=== PATIENT | male | born 1980 | race Caucasian/White ===

== ENCOUNTER 2018-05-31 18:43 | Emergency (ER) | payer MEDICARE, MEDICAID, SELFPAY ==
[2018-05-31 18:55] VITALS: BP 138/90; PULSE 108; RESP 16; TEMP 36.8; O2SAT 96; BMI 30.4
--- NOTE | 2018-05-31 19:02 | DI.RAD.S_ITS ---
PROCEDURE: XR HAND LT MIN 3V INDICATIONS: carrying center blocks , ?injury, now with pain and swelling TECHNIQUE: 3 views of the hand(s) acquired. COMPARISON: None. FINDINGS: Bones: No fractures or dislocations. Carpal bones are normally aligned. No suspicious bony lesions. Soft tissues: No suspicious soft tissue calcifications. IMPRESSION: No fracture or dislocation. Dictated by: Jason Schmidt M.D. on 05/31/2018 at 19:15 Approved by: Jason Schmidt M.D. on 05/31/2018 at 19:19
--- NOTE | 2018-05-31 20:21 | ED.EXTPRO ---
HPI - Extremity Problem General Chief complaint: Extremity Injury, Upper Stated complaint: LT HAND SWOLLEN Time Seen by Provider: 05/31/18 20:00 Source: patient Mode of arrival: ambulatory Limitations: no limitations History of Present Illness HPI Narrative: This is a 37-year-old male comes to the emergency department with complaint of swelling and redness on the back of his right hand. Patient states he noticed it the last 12 hr. Patient states that he did help his friend move quite a few cinder blocks the other day. He states he was wearing gloves at the time and his hands were protected. He states that he does not remember crushing his hand or having any injury. Patient states he noticed redness over the 2nd and 3rd finger as well as the back of the hand in that area. He has had some slight swelling. He has some pain with flexion extension although he describes it as mild. He has not had any numbness or tingling or new weakness. Not had any other fevers or other symptoms. Related Data Previous Rx's Medication Instructions Recorded cephalexin [Keflex] 500 mg PO QID 7 Days #28 cap 05/31/18 Allergies Allergy/AdvReac Type Severity Reaction Status Date / Time No Known Drug Allergies Allergy Verified 05/31/18 19:03 Review of Systems Review of Systems All systems reviewed & are unremarkable except as noted in HPI and below Constitutional Denies fever(s) and Denies weakness Musculoskeletal Reports as per HPI, Denies deformity, Denies limited range of motion, Denies muscle weakness, Denies numbness, Denies tingling and Reports other (Pain, swelling and redness of the hand) Integumentary/Breasts Reports erythema Neurologic Denies numbness, Denies tingling, Denies paresthesias and Denies weakness [facility] Social History Smoking Status: Current every day smoker alcohol intake: current substance use type: marijuana Exam Narrative Exam Narrative: GENERAL: Alert and oriented x three, obese, well-appearing male in mild distress. HEENT: Head normocephalic, atraumatic, EOMI, pupils reactive, face symmetric, moist mucous membranes NECK: Supple, full range of motion EXTREMITIES: Normal range of motion, no clubbing. Patient has some left hand he has some slight swelling and redness over the 2nd and 3rd metatarsal as well as extending into the finger of the 2nd and a little bit of the finger on the 3rd. He has full range of motion with flexion extension. He does not have a fusiform digit. He has cap refill less than 2 sec in all 5 fingers. He has normal sensation throughout. He has some mild swelling particularly over the back of the hand over the metatarsal region. He does not have any joint or bony tenderness. The area feels slightly warm to touch there is clear laceration or cut, no discharge or fluctuant collection. Neurovascularly intact NEUROLOGICAL: Cranial nerves II through XII grossly intact. Moving all extremities SKIN: Warm, dry, no petechiae. Initial Vital Signs Initial Vital Signs: Vital Signs Temperature 98.3 F 05/31/18 18:55 Pulse Rate 108 H 05/31/18 18:55 Respiratory Rate 16 05/31/18 18:55 Blood Pressure 138/90 05/31/18 18:55 Pulse Oximetry 96 05/31/18 18:55 Course Orders Ordered: ED Orders 05/31/18 19:02 XR hand LT min 3V Stat Discontinued Medications Cephalexin HCl (Keflex) 500 mg PO NOW ONE Stop: 05/31/18 20:21 Last Admin: 05/31/18 20:31 Dose: 500 mg Vital Signs - 8 hr 05/31/18 18:55 05/31/18 20:38 Temperature 98.3 F Pulse Rate 108 H 89 Respiratory Rate 16 16 Blood Pressure 138/90 127/78 Pulse Oximetry 96 99 MDM - Extremity (Nontraumatic) Imaging Data hand xray: Radiologist's impression: Ryan Cardoso - Patient Chart Chart Viewer Diagnostics DATE TYPE STATUS AUTHOR Hx 05/31/18 19:02 Josie Schmidt Brandon G 37, M0 1980 [facility], ED - [facility] ED: R04 172.72cm 90.718kg BSA: 2.04m? BMI: 30.4kg/m? Extremity Injury, Upper Search Chart No Known Drug Allergies ONSET 03/24/15 11/09/15 11/09/15 11/09/15 11/09/15 11/09/15 11/09/15 01/04/16 Today 18:[address] [address] XRay Report Signed Patient: Ryan Cardoso GMR#: [id number] : 1980Acct:[id number] Age/Sex: 37 / MDate of Service: 05/31/18 Loc: ED Accession Number: [id number] Procedure: XR hand LT min 3V Ordering Provider: Barbara Rollins D.O. PROCEDURE: XR HAND LT MIN 3V INDICATIONS: carrying center blocks , ?injury, now with pain and swelling TECHNIQUE: 3 views of the hand(s) acquired. COMPARISON: None. FINDINGS: Bones: No fractures or dislocations. Carpal bones are normally aligned. No suspicious bony lesions. Soft tissues: No suspicious soft tissue calcifications. IMPRESSION: No fracture or dislocation. Dictated by: Jason Schmidt M.D. on 05/31/2018 at 19:15 Approved by: Jason Schmidt M.D. on 05/31/2018 at 19:19 Discharge Plan Departure Patient Disposition: Home Clinical Impression: Cellulitis Discharge Date/Time: 05/31/18 20:39 Interventions: ED Discharge Assessment Last Done: 05/31/18 20:38 Instructions: DI for Cellulitis -- Adult Activity Restrictions/Additional Instructions: Follow-up with primary care in the next 5-7 days for recheck if your symptoms have not resolved or are not improving. Return to the emergency department for fevers greater than 100.4, rapidly worsening symptoms, increasing or spreading redness, increasing swelling of the hand or fingers, pain with flexion or extension of the fingers or hand, pallor or blueness of the fingers, new numbness or decrease in sensation or other new or concerning symptoms. Take antibiotics as prescribed take these until they are completely gone. You may take ibuprofen and/or Tylenol for pain. Prescriptions: New cephalexin [Keflex] 500 mg capsule 500 mg PO QID 7 Days Qty: 28 RF: 0
--- NOTE | 2018-05-31 20:25 | ED_ITS ---
HPI - Extremity Problem General Chief complaint: Extremity Injury, Upper Stated complaint: LT HAND SWOLLEN Time Seen by Provider: 05/31/18 20:00 Source: patient Mode of arrival: ambulatory Limitations: no limitations History of Present Illness HPI Narrative: This is a 37-year-old male comes to the emergency department with complaint of swelling and redness on the back of his right hand. Patient states he noticed it the last 12 hr. Patient states that he did help his friend move quite a few cinder blocks the other day. He states he was wearing gloves at the time and his hands were protected. He states that he does not remember crushing his hand or having any injury. Patient states he noticed redness over the 2nd and 3rd finger as well as the back of the hand in that area. He has had some slight swelling. He has some pain with flexion extension although he describes it as mild. He has not had any numbness or tingling or new weakness. Not had any other fevers or other symptoms. Related Data Previous Rx's Medication Instructions Recorded cephalexin [Keflex] 500 mg PO QID 7 Days #28 cap 05/31/18 Allergies Allergy/AdvReac Type Severity Reaction Status Date / Time No Known Drug Allergies Allergy Verified 05/31/18 19:03 Review of Systems Review of Systems All systems reviewed & are unremarkable except as noted in HPI and below Constitutional Denies fever(s) and Denies weakness Musculoskeletal Reports as per HPI, Denies deformity, Denies limited range of motion, Denies muscle weakness, Denies numbness, Denies tingling and Reports other (Pain, swelling and redness of the hand) Integumentary/Breasts Reports erythema Neurologic Denies numbness, Denies tingling, Denies paresthesias and Denies weakness [facility] Social History Smoking Status: Current every day smoker alcohol intake: current substance use type: marijuana Exam Narrative Exam Narrative: GENERAL: Alert and oriented x three, obese, well-appearing male in mild distress. HEENT: Head normocephalic, atraumatic, EOMI, pupils reactive, face symmetric, moist mucous membranes NECK: Supple, full range of motion EXTREMITIES: Normal range of motion, no clubbing. Patient has some left hand he has some slight swelling and redness over the 2nd and 3rd metatarsal as well as extending into the finger of the 2nd and a little bit of the finger on the 3rd. He has full range of motion with flexion extension. He does not have a fusiform digit. He has cap refill less than 2 sec in all 5 fingers. He has normal sensation throughout. He has some mild swelling particularly over the back of the hand over the metatarsal region. He does not have any joint or bony tenderness. The area feels slightly warm to touch there is clear laceration or cut, no discharge or fluctuant collection. Neurovascularly intact NEUROLOGICAL: Cranial nerves II through XII grossly intact. Moving all extremities SKIN: Warm, dry, no petechiae. Initial Vital Signs Initial Vital Signs: Vital Signs Temperature 98.3 F 05/31/18 18:55 Pulse Rate 108 H 05/31/18 18:55 Respiratory Rate 16 05/31/18 18:55 Blood Pressure 138/90 05/31/18 18:55 Pulse Oximetry 96 05/31/18 18:55 Course Orders Ordered: ED Orders 05/31/18 19:02 XR hand LT min 3V Stat Discontinued Medications Cephalexin HCl (Keflex) 500 mg PO NOW ONE Stop: 05/31/18 20:21 Last Admin: 05/31/18 20:31 Dose: 500 mg Vital Signs - 8 hr 05/31/18 18:55 05/31/18 20:38 Temperature 98.3 F Pulse Rate 108 H 89 Respiratory Rate 16 16 Blood Pressure 138/90 127/78 Pulse Oximetry 96 99 MDM - Extremity (Nontraumatic) Imaging Data hand xray: Radiologist's impression: Ryan Cardoso - Patient Chart Chart Viewer Diagnostics DATE TYPE STATUS AUTHOR Hx 05/31/18 19:02 Josie Schmidt Brandon G 37, M0 1980 [facility], ED - [facility] ED: R04 172.72cm 90.718kg BSA: 2.04m? BMI: 30.4kg/m? Extremity Injury, Upper Search Chart No Known Drug Allergies ONSET 03/24/15 11/09/15 11/09/15 11/09/15 11/09/15 11/09/15 11/09/15 01/04/16 Today 18:[address] [address] XRay Report Signed Patient: Ryan Cardoso GMR#: [id number] : 1980Acct:[id number] Age/Sex: 37 / MDate of Service: 05/31/18 Loc: ED Accession Number: [id number] Procedure: XR hand LT min 3V Ordering Provider: Barbara Rollins D.O. PROCEDURE: XR HAND LT MIN 3V INDICATIONS: carrying center blocks , ?injury, now with pain and swelling TECHNIQUE: 3 views of the hand(s) acquired. COMPARISON: None. FINDINGS: Bones: No fractures or dislocations. Carpal bones are normally aligned. No suspicious bony lesions. Soft tissues: No suspicious soft tissue calcifications. IMPRESSION: No fracture or dislocation. Dictated by: Jason Schmidt M.D. on 05/31/2018 at 19:15 Approved by: Jason Schmidt M.D. on 05/31/2018 at 19:19 Discharge Plan Departure Patient Disposition: Home Clinical Impression: Cellulitis Discharge Date/Time: 05/31/18 20:39 Interventions: ED Discharge Assessment Last Done: 05/31/18 20:38 Instructions: DI for Cellulitis -- Adult Activity Restrictions/Additional Instructions: Follow-up with primary care in the next 5-7 days for recheck if your symptoms have not resolved or are not improving. Return to the emergency department for fevers greater than 100.4, rapidly worsening symptoms, increasing or spreading redness, increasing swelling of the hand or fingers, pain with flexion or extension of the fingers or hand, pallor or blueness of the fingers, new numbness or decrease in sensation or other new or concerning symptoms. Take antibiotics as prescribed take these until they are completely gone. You may take ibuprofen and/or Tylenol for pain. Prescriptions: New cephalexin [Keflex] 500 mg capsule 500 mg PO QID 7 Days Qty: 28 RF: 0
[2018-05-31] MEDS: cephALEXin 250 MG CAPSULE 500 MG PO (20:31)
[2018-05-31 20:38] VITALS: BP 127/78; PULSE 89; RESP 16; O2SAT 99
== END 2018-05-31 20:39 | disposition home or self-care (01) ==
PROVIDERS: Emergency Provider Emergency Medicine; PCP Family Medicine
DX: L03.114 Cellulitis of left upper limb (principal)
CPT/HCPCS: 73130; 99282; 99283